=== PATIENT | female | born 1980 | race Two or more races ===

== ENCOUNTER → 2021-07-08 | Outpatient (CLI) | payer SELFPAY ==
[~2021-07-08] MED LIST: COLE1TAB PO
[2021-07-08 13:12] LABS: BASO % 0 % (0-3); EOS # 0.1 x10^3/uL (0.0-0.7); EOS % 1 % (0-3); HEMATOCRIT 35.1 % (36.0-47.0); HEMOGLOBIN 11.8 g/dL (12.0-15.5); LYMPH # 2.5 x10^3/uL (1.0-4.8); LYMPH % 31 % (24-48); MEAN CORPUSCULAR HEMOGLOBIN 29 pg (25-35); MEAN CORPUSCULAR HGB CONC 34 g/dL (31-37); MEAN CORPUSCULAR VOLUME 86 fL (79-100); MONO # 0.5 x10^3/uL (0.0-1.1); MONO % 7 % (0-9); NEUT # 4.8 x10^3/uL (1.8-7.7); NEUT % 61 % (31-73); PLATELET COUNT 236 x10^3/uL (140-400); RED BLOOD COUNT 4.07 x10^6/uL (3.50-5.40); RED CELL DISTRIBUTION WIDTH 13.8 % (11.5-14.5); WHITE BLOOD COUNT 7.9 x10^3/uL (4.0-11.0)
[2021-07-08 13:40] LABS: ALBUMIN 3.7 g/dL (3.4-5.0); CALCIUM 8.6 mg/dL (8.5-10.1); CREATININE 0.9 mg/dL (0.6-1.0); GFR 68.3; POTASSIUM 4.1 mmol/L (3.5-5.1); TOTAL BILIRUBIN 0.3 mg/dL (0.2-1.0); TOTAL PROTEIN 7.5 g/dL (6.4-8.2)
== END ==
LOC: LAB 12:25
PROVIDERS: ATTEND Obstetrics & Gynecology
DX: Z01.812 Encounter for preprocedural laboratory examination (principal)
CPT/HCPCS: 36415; 80053; 85025

== ENCOUNTER 2021-07-10 06:09 | Observation (INO) | payer BC ==
[2021-07-05 11:53] VITALS: BP 139/85
[2021-07-10] VITALS (7 sets, daily range): BP systolic 105–132; BP diastolic 62–75
[~2021-07-10] VITALS: Ht 152.4 cm; Wt 70.0 kg
[~2021-07-10 06:09] MED LIST changes: +HYDROmorphone 2 MG/ML INJ. IVP PRN; +IV RINGERS,LACTATED 1000ML 1,000 ML IV SCH; +MORPHINE SULFATE 2 MG/ML INJ. IVP PRN; +PROCHLORPERAZINE 10 MG/2 ML VIAL. IVP PRN; +fentaNYL PF VIAL 100 MCG/2 ML VIAL IVP PRN
[2021-07-10] MEDS ORDERED: ESTROGENS, CONJ VAGINAL CREAM 30GM TUBE. ONE (07:01)
[2021-07-10] MEDS ORDERED: BUPIVACAINE-EPI 0.25% 30 ML VIAL KIT. ONE (07:01)
[2021-07-10] MEDS ORDERED: INDIGOTINDISULFONATE SODIUM 40 MG/5 ML AMPUL. ONE (07:02)
[2021-07-10] MEDS ORDERED: BUPIVACAINE-EPI 0.5% 30 ML VIAL KIT. ONE (07:02)
[2021-07-10] MEDS ORDERED: MIDAZOLAM HCL/PF 2 MG/2 ML VIAL. ONE (07:10)
[2021-07-10] MEDS ORDERED: KETAMINE HCL IN NACL, ISO-OSM 50 MG/5 ML SYRINGE ONE (08:10)
[2021-07-10] MEDS ORDERED: ONDANSETRON PF 4 MG/2 ML VIAL. ONE (08:10)
[2021-07-10] MEDS ORDERED: PHENYLEPHRINE in 0.9% NACL PF 1 MG/10 ML SYRINGE. IV ONE (08:10)
[2021-07-10] MEDS ORDERED: DEXAMETHASONE SOD PHOS 4 MG/ML VIAL ONE (08:10)
[2021-07-10] MEDS ORDERED: GLYCOPYRROLATE 1 MG/5 ML VIAL. ONE ×2 (08:11→11:06)
[2021-07-10] MEDS ORDERED: KETOROLAC 30 MG/ML VIAL. ONE (08:12)
[2021-07-10] MEDS ORDERED: NEOSTIGMINE METHYLSULFATE 5 MG/5 ML SYRINGE. ONE (08:12)
[2021-07-10] MEDS ORDERED: FAMOTIDINE 20 MG/2 ML VIAL ONE (08:12)
[2021-07-10] MEDS ORDERED: diphenhydrAMINE 50 MG/ML VIAL ONE (08:13)
[2021-07-10] MEDS ORDERED: SEVOFLURANE > 120 MINUTES. IH ONE (08:13)
[2021-07-10] MEDS ORDERED: ESMOLOL 100 MG/10 ML VIAL. IVP ONE (08:38)
--- NOTE | 2021-07-10 08:40 | PDOC2 ---
CONSULT Date of Consult Date of Consult DATE: 07/10/21 TIME: 08:36 History of Present Illness Reason for Visit: The patient is a 41 year old female who was evaluated previously in the office. She has a left breast mass which she noticed about a year ago. She believes it has enlarged some. A mammogram described a 2.5 cm mass at the 8:00 location consistent with a fibroadenoma. A BIRADS 3 category was assigned. She will need a gynecologic surgery and was referred to consider concurrent excision of the mass. Past Medical History Past Medical History she denies Past Surgical History Past Surgical History lap yancy, abdominoplasty, breast augmentation Social History No ALCOHOL: rare Drugs: None Current Medications Current Medications Current Medications Fentanyl Citrate (Fentanyl 2ml Vial) 25 mcg PRN Q5MIN PRN IVP MILD PAIN 1-3; Start 07/10/21 at 06:00; Stop 07/11/21 at 05:59 Fentanyl Citrate (Fentanyl 2ml Vial) 50 mcg PRN Q5MIN PRN IVP MODERATE PAIN 4- 6; Start 07/10/21 at 06:00; Stop 07/11/21 at 05:59 Morphine Sulfate (Morphine Sulfate) 1 mg PRN Q10MIN PRN IVP SEVERE PAIN 7-10; Start 07/10/21 at 06:00; Stop 07/11/21 at 05:59 Ringer's Solution 1,000 ml @ 30 mls/hr Q24H IV Last administered on 07/10/21at 06:35; Start 07/10/21 at 06:00; Stop 07/10/21 at 17:59 Hydromorphone HCl (Dilaudid) 0.5 mg PRN Q10MIN PRN IVP SEVERE PAIN 7-10, 2nd CHOICE; Start 07/10/21 at 06:00; Stop 07/11/21 at 05:59 Prochlorperazine Edisylate (Compazine) 5 mg PACU PRN PRN IVP NAUSEA, MRX1; Start 07/10/21 at 06:00; Stop 07/11/21 at 05:59 Cefazolin Sodium/ Dextrose 50 ml @ 100 mls/hr 1X PREOP PRN IV PRIOR TO PROCEDURE; Start 07/10/21 at 06:00; Stop 07/10/21 at 18:00 Bupivacaine HCl/ Epinephrine Bitart (Sensorcain-Epi 0.25% Kit) 30 ml STK-MED ONCE .ROUTE ; Start 07/10/21 at 07:01; Stop 07/10/21 at 07:02; Status DC Estrogens Conjugated (Premarin) 30 shlomo STK-MED ONCE .ROUTE ; Start 07/10/21 at 07:01; Stop 07/10/21 at 07:02; Status DC Bupivacaine HCl/ Epinephrine Bitart (Sensorcain-Epi 0.5% Kit) 30 ml STK-MED ONCE .ROUTE ; Start 07/10/21 at 07:02; Stop 07/10/21 at 07:02; Status DC Indigotindisulfonate Sodium (Indigo [place]) 40 mg STK-MED ONCE .ROUTE ; Start 07/10/21 at 07:02; Stop 07/10/21 at 07:02; Status DC Midazolam HCl (Versed) 2 mg STK-MED ONCE .ROUTE ; Start 07/10/21 at 07:10; Stop 07/10/21 at 07:10; Status DC Phenylephrine HCl (PHENYLEPHRINE in 0.9% NACL PF) 1 mg STK-MED ONCE IV ; Start 07/10/21 at 08:10; Stop 07/10/21 at 08:10; Status DC Ketamine HCl (Ketamine) 50 mg STK-MED ONCE .ROUTE ; Start 07/10/21 at 08:10; St op 07/10/21 at 08:11; Status DC Dexamethasone Sodium Phosphate (Decadron) 4 mg STK-MED ONCE .ROUTE ; Start 07/10/21 at 08:10; Stop 07/10/21 at 08:11; Status DC Ondansetron HCl (Zofran) 4 mg STK-MED ONCE .ROUTE ; Start 07/10/21 at 08:10; Stop 07/10/21 at 08:11; Status DC Glycopyrrolate (Robinul) 1 mg STK-MED ONCE .ROUTE ; Start 07/10/21 at 08:11; Stop 07/10/21 at 08:11; Status DC Neostigmine [place] (Neostigmine Methylsulfate) 5 mg STK-MED ONCE .ROUTE ; Start 07/10/21 at 08:12; Stop 07/10/21 at 08:12; Status DC Famotidine (Pepcid Vial) 20 mg STK-MED ONCE .ROUTE ; Start 07/10/21 at 08:12; Stop 07/10/21 at 08:12; Status DC Ketorolac Tromethamine (Toradol 30mg Vial) 30 mg STK-MED ONCE .ROUTE ; Start 07/10/21 at 08:12; Stop 07/10/21 at 08:13; Status DC Diphenhydramine HCl (Benadryl) 50 mg STK-MED ONCE .ROUTE ; Start 07/10/21 at 08:13; Stop 07/10/21 at 08:13; Status DC Sevoflurane (Ultane) 90 ml STK-MED ONCE IH ; Start 07/10/21 at 08:13; Stop 07/10/21 at 08:14; Status DC Active Scripts Active Reported Colestid (Colestipol Hcl) 1 Gm Tablet 1 Gm PO DAILY Allergies Allergies: Coded Allergies: No Known Drug Allergies (Unverified , 07/05/21) ROS General: No: Chills, Night Sweats, Fatigue, Malaise, Appetite, Other PSYCHOLOGICAL ROS: No: Anxiety, Behavioral Disorder, Concentration difficultie, Decreased libido, Depression, Disorientation, Hallucinations, Hostility, Irritablity, Memory difficulties, Mood Swings, Obsessive thoughts, Physical abuse, Sexual abuse, Sleep disturbances, Suicidal ideation, Other Eyes: No Blurry vision, No Decreased vision, No Double vision, No Dry eyes, No Excessive tearing, No Eye Pain, No Itchy Eyes, No Loss of vision, No Photophobia, No Scotomata, No Uses contacts, No Uses glasses, No Other HEENT: No: Heacaches, Visual Changes, Hearing change, Nasal congestion, Nasal discharge, Oral lesions, Sinus pain, Sore Throat, Epistaxis, Sneezing, Snoring, Tinnitus, Vertigo, Vocal changes, Other ALLERGY AND IMMUNOLOGY: No: Hives, Insect Bite Sensitivity, Itchy/Watery Eyes, Nasal Congestion, Post Nasal Drip, Seasonal Allergies, Other Hematological and Lymphatic: No: Bleeding Problems, Blood Clots, Blood Transfusions, Brusing, Night Sweats, Pallor, Swollen Lymph Nodes, Other ENDOCRINE: No: Breast Changes, Galactorrhea, Hair Pattern Changes, Hot Flashes, Malaise/lethargy, Mood Swings, Palpitations, Polydipsia/polyuria, Skin Changes, Temperature Intolerance, Unexpected Weight Changes, Other Respiratory: No: Cough, Hemoptysis, Orthopnea, Pleuritic Pain, Shortness of breath, SOB with excertion, Sputum Changes, Stridor, Tachypnea, Wheezing, Other Cardiovascular: No Chest Pain, No Palpitations, No Orthopnea, No Paroxysmal Noc. Dyspnea, No Edema, No Lt Headedness, No Other Gastrointestinal: Yes Diarrhea Genitourinary: No Dysuria, No Frequency, No Incontinence, No Hematuria, No Retention, No Discharge, No Urgency, No Pain, No Flank Pain, No Other, No , No , No , No , No , No , No Musculoskeletal: No Gait Disturbance, No Joint Pain, No Joint Stiffness, No Joint Swelling, No Muscle Pain, No Muscular Weakness, No Pain In:, No Swelling In:, No Other Neurological: No Behavorial Changes, No Bowel/Bladder ControlChng, No Confusion, No Dizziness, No Gait Disturbance, No Headaches, No Impaired Coord/balance, No Memory Loss, No Numbness/Tingling, No Seizures, No Speech Problems, No Tremors, No Visual Changes, No Weakness, No Other Skin: No Dry Skin, No Eczema, No Hair Changes, No Lumps, No Mole Changes, No Mottling, No Nail Changes, No Pruritus, No Rash, No Skin Lesion Changes, No Other, No Acne Physical Exam Physical Exam left breast with 2.5 cm palpable mass at 8:00 position General: Alert, Oriented X3, Cooperative HEENT: Atraumatic Lungs: Clear to auscultation Heart: Regular rate Abdomen: Soft, No tenderness Extremities: No clubbing, No cyanosis Skin: No rashes Neuro: Normal speech Psych/Mental Status: Mental status NL MUSCULOSKELETAL: No joint tenderness, No deformity Vitals VITALS Vital Signs Date Time Temp Pulse Resp B/P (MAP) Pulse Ox O2 Delivery O2 Flow Rate FiO2 07/10/21 06:31 97.6 83 18 132/75 99 Room Air 97.6 Labs Labs Laboratory Tests Test 07/10/21 06:25 Bedside Urine HCG, Qualitative Hcg negative (Negative) Laboratory Tests Test 07/10/21 06:25 Bedside Urine HCG, Qualitative Hcg negative (Negative) Assessment/Plan Assessment/Plan Left breast mass; given the growth of the mass would recommend surgical excision. Plan to do concurrently with her gynecologic procedure. The details and risks of the procedure were discussed. She understands and would like to proceed. JERRY STEVEN MD Jul 10, 2021 08:40
[2021-07-10] MEDS ORDERED: fentaNYL PF VIAL 100 MCG/2 ML VIAL ONE ×2 (08:41→12:15)
[2021-07-10] MEDS ORDERED: ROCURONIUM 50 MG/5 ML VIAL. ONE ×2 (08:42→10:24)
[2021-07-10] MEDS ORDERED: HYDROmorphone 2 MG/ML INJ. ONE (08:46)
--- NOTE | 2021-07-10 11:06 | PDOC4 ---
BRIEF OPERATIVE NOTE Date: Jul 10, 2021 Pre-Op Diagnosis fibroids, menorrhagia, anemia Post-Op Diagnosis same plus adhesive disease and endometriosis and left ovarian cyst Procedure Performed LAVH/LSO/right salpingectomy and lysis of adhesions Surgeon Dr. Claire Huntley Ammonia Operator SCARLET Augustin Anesthesiologist Dr. Busch Anesthesia Type: General Blood Loss 100cc IV Fluid 1L crystalloid Urine Output 150cc clear via arrington Specimens Obtained cervix, uterus, bilateral tubes, left ovary Findings enlarged fibroid uterus, both tubes with fallop rings, left sided bowel adhesions to abd/IP/pelvic sidewall, ahesions to right side too, fatty cyst on left ovary Complications none Operative Note [id number] CLAIRE HUNTLEY MD Jul 10, 2021 11:06
[2021-07-10] MEDS ORDERED: MAG HYDROX/ALUMINUM HYD/SIMETH 30 ML ORAL.SUSP PO PRN (11:15)
[2021-07-10] MEDS ORDERED: NALOXONE 0.4 MG/ML VIAL. IV PRN (11:15)
[2021-07-10] MEDS ORDERED: ONDANSETRON PF 4 MG/2 ML VIAL. IV PRN (11:15)
[2021-07-10] MEDS ORDERED: oxyCODONE/APAP 5/325 1 TAB TABLET PO PRN (11:15)
[2021-07-10] MEDS ORDERED: LACTULOSE 20 GM/30 ML SOLUTION. PO PRN (11:15)
[2021-07-10] MEDS ORDERED: MAGNESIUM HYDROXIDE 2,400 MG/30 ML ORAL.SUSP. PO PRN (11:15)
[2021-07-10] MEDS ORDERED: MORPHINE SULFATE 2 MG/ML INJ. IV PRN (11:15)
[2021-07-10] MEDS ORDERED: diphenhydrAMINE 50 MG/ML VIAL IV PRN (11:15)
[2021-07-10] MEDS ORDERED: SIMETHICONE 80 MG TAB.CHEW PO PRN (11:15)
[2021-07-10] MEDS ORDERED: 0.9 % SODIUM CHLORIDE 10 ML DISP.SYRIN. IV PRN (11:15)
[2021-07-10] MEDS ORDERED: CALCIUM CARBONATE 500 MG TAB.CHEW PO PRN (11:15)
[2021-07-10] MEDS ORDERED: diphenhydrAMINE HCL 25 MG CAPSULE PO PRN (11:15)
[2021-07-10] MEDS ORDERED: ZOLPIDEM 5 MG TABLET. PO PRN (11:15)
[2021-07-10] MEDS ORDERED: HYDROcodone/APAP 5/325MG 1 TAB TABLET PO PRN (11:15)
--- NOTE | 2021-07-10 11:46 | PDOC4 ---
Operative Note Operative Note Operative Note: Preoperative Diagnosis: Left breast mass Postoperative Diagnosis: Same Procedure: Excision of left breast mass Surgeon: Atif Metal Melter: SCARLET Augustin, Montrell Wang, MS 4 Anesthesia: General EBL: 10 mL Specimen: Breast mass to pathology Drains: None Complications: None Indication: The patient is a 41-year-old female who is referred due to a left breast mass. Evaluation of the mass is most consistent with a fibroadenoma. However it has increased in size and she is requesting excision. She will require gynecologic procedure and request that both be done concurrently. The risks of surgery were discussed which include bleeding, infection, pain, scar tissue, anesthetic risk, potential need for additional surgery or procedure. She understands and would like to proceed. Description: The patient was taken to the operating room and placed supine on the operating table. General anesthesia was performed. The left breast was prepped with ChloraPrep and draped in standard surgical manner. The mass was located at the 8 o'clock position. An incision was made directly overlying the mass. Sharp dissection was carried down into the breast parenchyma. The mass was mobilized from the surrounding tissues with sharp dissection. The mass was then fully excised and was grayish in color and well-circumscribed. The mass measured 2-1/2 x 2 cm and was sent to pathology for evaluation. Hemostasis was achieved with cautery. The subcutaneous tissue was approximated with 3-0 Vicryl. The skin was closed with 4-0 Monocryl. Incision was infiltrated with half percent Marcaine with epinephrine and Steri-Strips and a dressing were applied. The patient tolerated the procedure well and was sent to the recovery room in stable condition. At the end of the case all counts were correct. JERRY STEVEN MD Jul 10, 2021 11:46
--- NOTE | 2021-07-10 12:12 | OP ---
DATE OF SURGERY: 07/10/2021 PREOPERATIVE DIAGNOSES: 1. Enlarged fibroid uterus, menorrhagia. 2. Anemia. POSTOPERATIVE DIAGNOSES: 1. Enlarged fibroid uterus, menorrhagia. 2. Anemia. 3. Left ovarian cyst. 4. Adhesive disease. 5. Endometriosis. PROCEDURES: Laparoscopic-assisted vaginal hysterectomy, left salpingo-oophorectomy, right salpingectomy and extensive lysis of bowel adhesions on the left side. SURGEON: Claire Huntley MD THEATRE PROFESSOR: SCARLET Augustin ANESTHESIOLOGIST: Fermin Busch MD ANESTHESIA: General. BLOOD LOSS: 100 mL. URINE OUTPUT: 150 mL clear via Deleon. IV FLUIDS: One liter of crystalloid. SPECIMENS: Cervix, uterus, left tube and ovary, right tube. FINDINGS: She had an enlarged fibroid uterus. Both tubes had evidence of prior tubal ligation with Falope rings. She had endometriosis and bowel adhesions to the left abdominal wall or sidewall, left IP ligament and left pelvis. She had a few adhesions to the right side. She had a normal appendix, but it was a little adhesed and she had a fatty cyst on the left ovary. COMPLICATIONS: None. DESCRIPTION OF PROCEDURE: This patient was taken to the operating room where general anesthesia was placed. The patient was placed in the dorsal lithotomy position in [facility]. The patient's abdomen and vagina were both prepped and draped in the normal sterile fashion and a Deleon catheter was inserted under sterile technique. Upon my arrival, a timeout was performed. Once everyone agreed on the patient, the site, the procedure, the antibiotics, the procedure was initiated. A bivalve speculum was placed in the patient's vagina. A single-tooth tenaculum was used to grasp the anterior lip of the cervix. 10 mL of 0.25% Marcaine with epinephrine was used to circumferentially inject around the cervix for both hemodissection and hemostatic purposes later. The Valtchev uterine manipulator was placed through the endocervical os, locked on the single tooth tenaculum and the bivalve speculum was then removed. Top gloves were discarded and changed. Attention was then turned to the abdomen, where a small supraumbilical skin incision was made with the scalpel. She had, had a prior abdominoplasty with moving her umbilicus with an enlarged uterus and a low belly button, I did go above the belly button. A small incision was made. A curved Madai was used to dissect through the subcuticular layer to the fascia. The 5-mm Visiport was used to directly enter the abdominal cavity. Opening patient pressure was 2 mmHg. Carbon dioxide gas was used to appropriately insufflate the abdominal cavity to maintain a pressure of 15 mmHg. Carbon dioxide gas was then used to appropriately maintain that. Overhead lights were dimmed. She was placed in Trendelenburg position. Right and left lower quadrant ports were placed under direct visualization. These were 5-mm disposable atraumatic ports, transilluminating the abdominal wall, finding an area clear of any vasculature, making a small incision and placing it under direct visualization. 4-5 mL of air was placed in the trocar cuffs of these. I did move the camera laterally to check the umbilical port and it was good as well and inflated. At this point, the right tube and ovary were noted to be free of adhesions. We found the ureter coursing low and very easy on the right side. The left tube and ovary were a little bit stuck to the left bowel, but once we got it up, the left tube came up and both tubes had evidence of prior tubal ligation with Falope rings, but the left ovary had a fatty cyst on it and right under the left ovary on the sidewall, was definitely an endometrial implant on the ureter, so it was decided I had to dissect all the bowel down off the left side to identify the ureter because where we thought it was, was under the adhesions and the endometriosis. I had to dissect the bowel off the sidewall, the IP ligament and going down to see where it came into the pelvis and follow it down and make sure it was low. Once it was assured to be low, the IP ligament was obtained and going across on the tube and then getting the left round ligament as well. The right ovary was normal and she did wish to retain ovaries if they were normal, so I left her normal, she retains her normal right ovary. So I went above the ovary, below the tube and did a salpingectomy, then crossed the right uterine ovarian pedicle and the right round ligament, leaving her normal right ovary. A bladder flap was created sharply elevating it from those sides where it was started and using the monopolar hook to cut cross and taking it down under direct visualization. Once the bladder was down, the uterine vessels were obtained on both sides and staying inside that and posteriorly, hugging the cervix, going through the cardinal and broad ligaments on both sides, again all the while making sure the bladder was down. She was free posteriorly and everything was now done and the uterus was completely free and blanched. It was decided to go vaginally. The overhead lights were turned back on. The patient's legs were elevated. She was taken out of the Trendelenburg position. The single tooth and Valtchev were removed. A weighted speculum was placed in the patient's vagina. Thyroid David clamps were placed on the anterior and posterior lips of the cervix respectively. A scalpel was used to make a circumferential incision in the cervix. Cervix was elevated. Posterior cul-de-sac was sharply entered with a curved Bustamante scissor. A #0 Vicryl stitch was used to secure the posterior peritoneum here to the vaginal cuff. It was tagged with a curved Madai clamp and the needle was cut and passed off. On both sides, it was able to be pushed up easily. For some reason, it was thicker in the middle and I thought I might be a little deep but I just wanted to make sure, so I went up and was able to get the patient's left uterosacral ligament where it was doubly clamped with curved Heaneys, cut with curved Bustamante scissors and suture ligated x 2 with 0 Vicryl. Second one was taken through the vaginal cuff, securing uterosacral ligament to the vaginal cuff, tagged with a straight Madai clamp and the needle was cut and passed off. On the left side, when I was feeling up and around, I actually got a right angle around the remaining pedicle and it was cauterized and cut with excellent results. I got the remaining pedicle on the right as well. So what I ended up doing was inverting the uterus with a towel clip on the posterior fundus and taking down the bladder under direct visualization, watching it from the front as well. Once this was done, the cervix, uterus and both tubes were delivered, but the left ovary had come off in there. So looking for it, could not find it initially. I could see ovary on her right side, but that is the normal ovary she retained. I kept visualizing it on the right, I gently grabbed it, it did not want to come, so I did not want to take the right ovary obviously. So at this point, after examining it, I found a small bleeder on the left uterosacral ligament. It was easily clamped with a burlisher and cauterized behind it with excellent results. I took the long Juju speculum out, put the short weighted speculum in, looked around again, could not easily find it. So, at this point, it was decided to close and just use the EndoCatch bag to get the ovary from above. The bladder peritoneum was identified with a long Allis. 2-0 Vicryl was taken through the anterior bladder peritoneum, left uterosacral ligament, posterior peritoneum and the right uterosacral ligament, thus closing the peritoneum in a pursestring like fashion. Once this was done, the cuff was closed in an [id number] running locked fashion with a full length 2-0 Vicryl. An imbricating stitch was placed in the middle for hemostasis with excellent results. Sponge stick was used to examine the vaginal cuff and it was completely hemostatic and dry. At this point, all gloves were discarded and changed and attention was turned back above for a second look. The patient was placed back in Trendelenburg position. Overhead lights were dimmed again. The gas was turned back on and reinsufflated and on the right side, right next to the right ovary that was left was the fatty cystic left ovary. Copious irrigation revealed hemostasis of the vaginal cuff. Tisseel was placed over the vaginal cuff. The pericolic gutters were clear. The appendix was seen. Pictures were taken of this as well. The left lower quadrant port was slightly extended and a 10/12 port was placed. EndoCatch bag was placed down. This ovary was placed in it and it was easily removed under direct visualization. An Endoclose stitch with 0 Vicryl was used to go on either side of the port and closed the fascia under direct visualization with an 0 Vicryl stitch on that 04/09. Once that was done, the camera was used to watch the balloons deflate on the right lower quadrant port and it was removed under direct visualization. It was hemostatic. Gas was released from the umbilical port. The 4-5 mL of air was taken out of the trocar cuff. Then, the gas was released from the abdominal cavity and then it was removed as well. All 3 port sites were closed with 4-0 nylon at the skin after closing that left lower quadrant port with an EndoCatch under direct visualization laparoscopically as well, but all were closed at the skin and this completed the procedure. All sponge, lap and needle counts were correct x 2 by OR personnel. She is not being awakened from anesthesia. Dr. Srivastava is coming in and the remainder of the surgery as per him for a breast lump, but my part of the surgery is complete. ROJAS/EULOGIO DR: ROJAS/pradeep TID: [id number]
[2021-07-10] MEDS: fentaNYL PF VIAL 100 MCG/2 ML VIAL IVP PRN ×2 (12:18→12:25)
--- NOTE | 2021-07-10 12:35 | NUR ---
Pt received from OR following LAVH and removal of breast mass. Pt responding drowsy, but responds to questions.
[2021-07-10 18:31] LABS: HEMATOCRIT 31.8 % (36.0-47.0); HEMOGLOBIN 10.6 g/dL (12.0-15.5); RED BLOOD COUNT 3.61 x10^6/uL (3.50-5.40); RED CELL DISTRIBUTION WIDTH 13.6 % (11.5-14.5); WHITE BLOOD COUNT 13.9 x10^3/uL (4.0-11.0)
--- NOTE | 2021-07-10 18:55 | NUR ---
Pt. discharged per w/c in stable condition accompanied by and nurse.
--- NOTE | 2021-07-11 16:10 | PATHOLOGY ---
[facility] Accession Number: [id number] . 01 Material submitted: . PART A: uterus - UTERUS, BILATERAL TUBES, RT OVARY, CERVIX PART B: breast - LEFT BREAST MASS. Modifiers: left . 01 Clinical history: . FIBROIDS LAVH POSS SBD . 02 Diagnosis: A. Uterus, attached bilateral fallopian tubes, and detached ovary, laparoscopic assisted vaginal hysterectomy with bilateral salpingectomy and right oophorectomy: - Leiomyomas, uterine corpus, submucosal/intramural/ subserosal, the largest measuring 1.8 cm in greatest dimension (uterine weight 204 grams). - Endometrial polyp measuring 1.0 cm. - Secretory endometrium. - Adenomyosis, uterine corpus, focal. - Status post bilateral tubal ligation. - Few cystic follicles of right ovary. . B. Breast tissue, left breast mass excision: - Fibroadenoma. . (KATHIAM:mikhail; 07/11/2021) MBR 07/11/2021 1555 Local . 02 Comment: There is no evidence of malignancy. (DEANNE:mikhail; 07/11/2021) . 02 Electronically signed: . Ignacio Armstrong MD, Pathologist NPI- [id number] . 01 Gross description: . A. Fixative: Formalin Labeled: [facility] [place] Salpingectomy and R oopherectomy Specimen received: A uterus with attached bilateral fallopian tubes and a previously detached ovary Uterus weight: 204 g Uterus: 11.0 cm fundus to cervix, 7.0 cm cornu to cornu, 5.4 cm anterior to posterior Serosa: What Cheer-hurt, focally disrupted (2.1 x 1.1 cm) with minimal adherent blood clot Cervix: 3.1 x 2.5 cm Cervical os: Central, circular and patent, measuring 0.7 cm in diameter The anterior lower uterine neck is inked blue and the posterior lower uterine neck is inked black. . Endocervical canal: 4.0 cm in length by 0.9 cm in diameter Endometrial cavity: 4.9 x 3.1 cm Endometrium: What Cheer, shaggy and displays a hurt polyp (1.0 x 0.7 x 0.2 cm) that appears confined to the endometrium Endometrial thickness: 0.3 cm Myometrium: What Cheer and trabecular (measuring up to 3.3 cm thick) Lesions/abnormalities: The myometrium displays multiple submucosal, intramural and subserosal hurt-white well-circumscribed nodules (ranging from 0.2 cm to 1.8 cm in greatest dimension). Sectioning through the nodules reveals hurt-white and whorled cut surfaces with focal areas of hemorrhage and cystic degeneration, without calcifications or necrosis. . Right fallopian tube: Fimbriated and is consistent with having been previously ligated; 6.8 cm in length x up to 1.5 cm in diameter and displays a maroon shaggy focal serosal disruption (2.4 x 1.0 cm) Right fallopian tube cut surface: The proximal lumen is focally dilated up to 0.3 cm in diameter Right ovary: 6 g, 2.8 x 2.6 x 1.4 cm Right ovarian cut surface: Displays 4 unilocular, clear fluid-filled, smooth-walled cysts (ranging from 0.5 cm to 0.9 cm in greatest dimension) Left fallopian tube: Fimbriated and is consistent with having been previously ligated; 7.0 cm in length x up to 1.0 cm in diameter Left fallopian tube cut surface: The proximal lumen is focally dilated up to 0.4 cm in diameter . Glass Driller sections are submitted as follows: A1: Anterior and posterior cervix, represented A2: Anterior endomyometrial shavings, represented and anterior endometrial polyp, entirely submitted A3: Posterior endomyometrium, represented A4-A5: Myometrial nodules, represented A6: Serosal shavings to include focal disruption, represented and to include the posterior gutter A7: Right fallopian tube to include serosal disruption, represented A8: Right ovary, represented A9: Left fallopian tube, represented . B. The specimen is received in formalin, labeled "Amy Motta, left breast mass" and consists of an unoriented fatty irregular tissue (6 g, 2.8 x 2.3 x 1.9 cm). The surgical margin is inked black. Sectioning reveals a hurt-white well-circumscribed nodule (2.3 cm in greatest dimension). Sectioning reveals hurt-pink and slightly whorled cut surfaces. No biopsy cavity or clip is identified. The remaining cut surfaces are fatty and unremarkable with less than 5% fibrous tissue. Glass Driller sections are submitted in B1-B3. The cold ischemic time is less than 60 seconds. The total time in formalin is 10 hours. ([place]; 07/10/2021) DKA/DKA 07/10/2021 1818 Local . 02 Pathologist provided ICD-10: D25.0, D25.1, D25.2, N84.0, N80.0, D24.2 . 02 CPT . 039633, [id number] Specimen Comment: A courtesy copy of this report has been sent to [phone], [phone] Specimen Comment: [id number], Specimen Comment: Report sent to , DR STEVEN / DR PRYOR Specimen Comment: A duplicate report has been generated due to demographic updates. Performed at: 01 [facility] [address], [place], [place] [id number] MD Josh Monaco MD Phone: [phone] Performed at: 02 [facility] [address] [place], [place] [id number] MD Ignacio Armstrong MD Phone: [phone]
== END 2021-07-10 19:00 | disposition home or self-care (01) ==
LOC: SURG 06:09 → EDUNIT# 07:30 → 3 NORTH 11:09
PROVIDERS: ADMIT Obstetrics & Gynecology; ATTEND Obstetrics & Gynecology
DX: D25.9 Leiomyoma of uterus, unspecified (principal); N80.9 Endometriosis, unspecified; N83.202 Unspecified ovarian cyst, left side; N92.0 Excessive and frequent menstruation with regular cycle; D64.9 Anemia, unspecified; K66.0 Peritoneal adhesions (postprocedural) (postinfection); N63.20 Unspecified lump in the left breast, unspecified quadrant; Z98.51 Tubal ligation status; Z79.899 Other long term (current) drug therapy; Z98.890 Other specified postprocedural states
CPT/HCPCS: 19120; 36415; 58552; 81025; 85027; 86850; 86900; 86901; 88305; 88307; A4209; A4314; A4364; A4930; A6254; A6258; A6402; G0378; G0379; J0690; J1100; J1170; J1200; J1885; J2250; J2370; J2405; J2710; J3010; J3490; A4657